=== PATIENT | female | born 1955 | race Two or more races ===

== ENCOUNTER 2024-12-26 06:00 | Outpatient (CLI) | payer OTHER ==
[~2024-12-26] VITALS: Ht 156.2 cm; Wt 82.1 kg
[~2024-12-26 06:00] MED LIST: NAPROXEN SODIU550 MG PO
[2024-12-26] MEDS ORDERED: LANTUS SOL100 UNIT/1 (12:29)
[2024-12-26] MEDS ORDERED: AVAPRO300 MG PO (12:29)
[2024-12-26] MEDS ORDERED: SYNTHROID50 MCG PO (12:29)
[2024-12-26] MEDS ORDERED: JANUMET 50-1,01 EACH PO (12:30)
[2024-12-26] MEDS ORDERED: GLIPIZIDE XL2.5 MG PO (12:30)
[2024-12-26] MEDS ORDERED: NORVASC5 MG PO (12:30)
[2024-12-26] MEDS ORDERED: HORIZANT300 MG PO (12:31)
[2024-12-26] MEDS ORDERED: SPIRIVA RESPIMAT4 GM IH (12:31)
[2024-12-26] MEDS ORDERED: FENOFIBRATE50 MG PO (12:31)
[2024-12-26 12:32] VITALS: BP 160/75
[2025-01-23] MEDS ORDERED: LIPITOR40 MG PO (12:39)
== END 2024-12-26 06:01 | disposition home or self-care (01) ==
LOC: EKG 06:00 → ADM 10:15 → CIR.AMB 01-01 10:00 → EDSTATUS 01-01 10:15
PROVIDERS: ATTEND Obstetrics & Gynecology Gynecology
DX: N95.9 Unspecified menopausal and perimenopausal disorder (principal)

== ENCOUNTER 2025-01-29 07:26 | Day surgery (SDC) | payer OTHER ==
[2025-01-23 13:19] VITALS: BP 147/76
[~2025-01-29] VITALS: Ht 157.5 cm; Wt 82.1 kg
[~2025-01-29 07:26] MED LIST changes: +AVAPRO300 MG PO; +FENOFIBRATE50 MG PO; +GLIPIZIDE XL2.5 MG PO; +HORIZANT300 MG PO; +JANUMET 50-1,01 EACH PO; +LANTUS SOL100 UNIT/1; +LIPITOR40 MG PO; +NORVASC5 MG PO; +SPIRIVA RESPIMAT4 GM IH; +SYNTHROID50 MCG PO
[2025-01-29] MEDS ORDERED: POVIDONE-IODINE 118 ML BOTT TOP ONE (11:45)
[2025-01-29] MEDS ORDERED: IBU600 MG PO (14:04)
== END 2025-01-29 17:45 | disposition home or self-care (01) ==
LOC: CIR.AMB 07:26
PROVIDERS: ATTEND Obstetrics & Gynecology Gynecology
DX: N84.0 Polyp of corpus uteri (principal); N95.0 Postmenopausal bleeding; Z88.1 Allergy status to other antibiotic agents; I10 Essential (primary) hypertension; E11.9 Type 2 diabetes mellitus without complications; E03.8 Other specified hypothyroidism

== ENCOUNTER 2025-05-14 12:15 | Inpatient (IN) | payer OTHER ==
[~2025-05-14] VITALS: Ht 154.9 cm; Wt 81.6 kg
[~2025-05-14 12:15] MED LIST changes: +IBU600 MG PO
[2025-05-14 14:11] VITALS: BP 130/76
[2025-05-14 14:14] VITALS: BP 130/75
[2025-05-14 15:36] LABS: RH POSITIVE
[2025-05-21] MEDS ORDERED: CEFAZOLIN SODIUM 1,000 MG VIAL IV SCH ×2 (12:45→18:00)
[2025-05-21] MEDS ORDERED: POVIDONE-IODINE 118 ML BOTT TOP ONE (12:45)
[2025-05-21] MEDS ORDERED: HEMOSTATIC MATRIX 1 KIT KIT TOP ONE (13:15)
[2025-05-21] MEDS ORDERED: SURGIFLO APPLICATOR 1 EACH APPL TOP ONE (13:15)
[2025-05-21] MEDS ORDERED: ONDANSETRON HCL 2 MG/ML VIAL IV PRN (14:00)
[2025-05-21] MEDS ORDERED: RINGERS SOLUTION,LACTATED 1,000 ML IV SCH (14:00)
[2025-05-21] MEDS ORDERED: INSULIN LISPRO 1,000 UNIT/10 ML UNITS SUBCUTANEO PRN ×3 (14:00→15:15)
[2025-05-21] MEDS ORDERED: MORPHINE SULFATE 4 MG/ML VIAL IV PRN (14:00)
[2025-05-21] MEDS ORDERED: DEXTROSE 50 % IN WATER 0.5 G/ML DISP.SYRIN IV PRN (14:00)
[2025-05-21] MEDS ORDERED: DEXTROSE 50 % IN WATER 0.5 G/ML VIAL IV PRN ×2 (14:00→15:15)
[2025-05-21] MEDS ORDERED: SUGAMMADEX SODIUM 200 MG/2 ML VIAL IV ONE (14:15)
[2025-05-21] MEDS ORDERED: MORPHINE SULFATE 4 MG,MORPHINE SULFATE 2 MG IV PRN (14:30)
[2025-05-21] MEDS ORDERED: MORPHINE SULFATE 4 MG/ML VIAL IV ONE (15:00)
[2025-05-21 19:37] LABS: BASO % 0.3 % (0.1-1.2); EOS # 0.01 (0.04-0.54); EOS % 0.1 % (0.7-7.0); LYMPH # 1.06 (1.18-3.74); LYMPH % 5.9 % (19.3-53.1); MEAN PLATELET VOLUME 12.60 fl (9.4-12.4); MONO # 0.70 (0.24-0.82); MONO % 3.9 % (4.7-12.5); NEUT # 16.09 (1.56-6.13); NEUT % 89.2 % (34.0-71.1); RED CELL DISTRIBUTION WIDTH 13.8 % (11.6-14.4)
[2025-05-21 20:05] VITALS: BP 130/75
[2025-05-22 01:00] VITALS: BP 125/63
[2025-05-22] MEDS ORDERED: SIMETHICONE 125 MG CAPSULE PO SCH (06:49)
[2025-05-22 08:26] VITALS: BP 124/64
[2025-05-22] MEDS ORDERED: AMLODIPINE BESYLATE 5 MG TABLET PO SCH (09:00)
[2025-05-22] MEDS ORDERED: IRBESARTAN 300 MG TABLET PO SCH (09:00)
[2025-05-22] MEDS ORDERED: GABAPENTIN 300 MG CAPSULE PO SCH (09:00)
[2025-05-22] MEDS ORDERED: ENOXAPARIN SODIUM 40 MG/0.4 ML SYRINGE SUBCUTANEO SCH (09:00)
[2025-05-22 11:07] LABS: ALT/SGPT 15.0 U/L (12-78); AST/SGOT 16.0 U/L (15-37); BILIRUBIN TOTAL 0.67 mg/dL (0.3-1.2); BUN CREA RATIO 12.0 (7.0-25.0); CREATININE SERUM 0.94 mg/dL (0.55-1.02); GFR 58.87; GLOBULINA 3.2 G/DL (2.4-3.5); GLUCOSE FASTING 212.0 mg/dL (65-100); OSMOLALITY SERUM 287.0 MOSM/KG (275-295)
[2025-05-22 11:51] LABS: BASO % 0.4 % (0.1-1.2); EOS # 0.07 (0.04-0.54); EOS % 0.4 % (0.7-7.0); LYMPH # 2.11 (1.18-3.74); LYMPH % 13.3 % (19.3-53.1); MEAN PLATELET VOLUME 12.10 fl (9.4-12.4); MONO # 1.02 (0.24-0.82); MONO % 6.4 % (4.7-12.5); NEUT # 12.54 (1.56-6.13); NEUT % 79.2 % (34.0-71.1); RED CELL DISTRIBUTION WIDTH 13.9 % (11.6-14.4)
[2025-05-22 16:17] VITALS: BP 95/65
[2025-05-22 16:50] LABS: BASO % 0.4 % (0.1-1.2); EOS # 0.10 (0.04-0.54); EOS % 0.8 % (0.7-7.0); LYMPH # 1.95 (1.18-3.74); LYMPH % 16.0 % (19.3-53.1); MEAN PLATELET VOLUME 12.30 fl (9.4-12.4); MONO # 1.05 (0.24-0.82); MONO % 8.6 % (4.7-12.5); NEUT # 8.96 (1.56-6.13); NEUT % 73.6 % (34.0-71.1); RED CELL DISTRIBUTION WIDTH 14.0 % (11.6-14.4)
[2025-05-22 20:50] LABS: BASO % 0.4 % (0.1-1.2); EOS # 0.16 (0.04-0.54); EOS % 1.1 % (0.7-7.0); LYMPH # 1.84 (1.18-3.74); LYMPH % 13.1 % (19.3-53.1); MEAN PLATELET VOLUME 11.70 fl (9.4-12.4); MONO # 0.98 (0.24-0.82); MONO % 7.0 % (4.7-12.5); NEUT # 10.95 (1.56-6.13); NEUT % 77.9 % (34.0-71.1); RED CELL DISTRIBUTION WIDTH 14.1 % (11.6-14.4)
[2025-05-23] VITALS: BP 129/63
[2025-05-23] MEDS ORDERED: GABAPENTIN300 MG PO (07:17)
[2025-05-23] MEDS ORDERED: IBUPROFEN800 MG PO (07:18)
[2025-05-23] MEDS ORDERED: DELSYM30 MG/5 M1 PO (07:21)
[2025-05-23] MEDS ORDERED: MAXFE CAPLET1 EAC1 PO (07:25)
[2025-05-23 08:00] VITALS: BP 114/63
== END 2025-05-23 10:03 | disposition home or self-care (01) | DRG 743 ==
LOC: OB/GYN 05-21 09:15 → O/R 05-21 11:55 → OB/GYN 05-21 12:15
PROVIDERS: Obstetrics & Gynecology; ADMIT Obstetrics & Gynecology Gynecology; ATTEND Obstetrics & Gynecology Gynecology
PROC: 0UT74ZZ Resection of Bilateral Fallopian Tubes, Percutaneous Endoscopic Approach (ICD-10-PCS; 2025-05-21)
PROC: 0UT24ZZ Resection of Bilateral Ovaries, Percutaneous Endoscopic Approach (ICD-10-PCS; 2025-05-21)
PROC: 0UT94ZZ Resection of Uterus, Percutaneous Endoscopic Approach (ICD-10-PCS; principal; 2025-05-21 09:15)
DX: D25.1 Intramural leiomyoma of uterus (principal); D25.2 Subserosal leiomyoma of uterus; N95.0 Postmenopausal bleeding; N80.03 Adenomyosis of the uterus; N84.0 Polyp of corpus uteri